=== PATIENT | male | born 1990 | race African-American/Black ===

== ENCOUNTER 2023-05-21 13:02 | Emergency (ER) | payer MEDICAID, OTHER ==
[~2023-05-21] VITALS: Ht 160 cm; Wt 84.0 kg
[2023-05-21 13:18] VITALS: BP 116/73; PULSE 80; RESP 19; TEMP 98.3; O2SAT 96
[2023-05-21] MEDS ORDERED: LIDOCAINE HCL/PF 1% 10 MG/ML 5ML VIAL INFIL ONE (16:15)
[2023-05-21] MEDS ORDERED: SULF1TAB48 MT (18:05)
[2023-05-21] MEDS ORDERED: CEPH500T MT (18:05)
[2023-05-21] MEDS ORDERED: LIDOCAINE HCL/PF 1% 10 MG/ML 5ML VIAL INFIL NR (18:15)
== END 2023-05-21 18:28 | disposition home or self-care (01) ==
LOC: ER 13:02
DX: L02.01 Cutaneous abscess of face (principal); J45.909 Unspecified asthma, uncomplicated
CPT/HCPCS: 10060; 99282; J3490

== ENCOUNTER 2025-03-27 21:00 | Emergency (ER) | payer MEDICAID, OTHER ==
[~2025-03-27] VITALS: Ht 188 cm; Wt 91.0 kg
[~2025-03-27 21:00] MED LIST: CEPH500T MT; SULF1TAB48 MT
[2025-03-27 21:10] VITALS: O2SAT 99
[2025-03-27] MEDS: HALOPERIDOL LACTATE 5MG/ML VIAL IM ONE (22:24)
[2025-03-27] MEDS: DIPHENHYDRAMINE 50MG/ML VIAL IM ONE (22:25)
[2025-03-28 02:18] LABS: BASOPHILS % 0.4 % (0.0-2.0); EOSINOPHILS % 1.3 % (0.0-5.0); HEMATOCRIT. 41.8 % (42.0-52.0); HEMOGLOBIN. 14.0 g/dL (14.0-18.0); LYMPHOCYTES % 25.4 % (20.0-50.0); MEAN PLATELET VOLUME 8.4 fl (7.4-10.4); MONOCYTES % 9.1 % (2.0-8.0); NEUTROPHILS % 63.8 % (40.0-76.0); PLATELET 164 x1000/uL (130-400); RED BLOOD CELL COUNT 5.16 mill/uL (4.7-6.1); RED CELL DISTRIBUTION WIDTH 16.4 % (11.6-14.6)
[2025-03-28 02:35] LABS: CREATININE 1.2 mg/dL (0.6-1.3); ETHANOL BLOOD < 10 mg/dL (<10); UREA NITROGEN BLOOD 13 mg/dL (9-23)
[2025-03-28 19:29] LABS: CLARITY URINE CLEAR (CLEAR); COLOR URINE YELLOW (YELLOW); GLUCOSE URINE NEGATIVE (NEGATIVE); KETONES URINE 1+ (NEGATIVE); LEUKOCYTE ESTERASE URINE TRACE (NEGATIVE); NITRITE URINE NEGATIVE (NEGATIVE); OCCULT BLOOD URINE NEGATIVE (NEGATIVE); PH URINE 6.0 (4.5-8.0); PROTEIN URINE NEGATIVE (NEGATIVE); SPECIFIC GRAVITY URINE 1.029 (1.005-1.030); UROBILINOGEN URINE 1.0 E.U./dL (0.2-1.0)
[2025-03-28 19:39] LABS: *AMPHETAMINES SCREEN URINE NEGATIVE (NEGATIVE); *BARBITURATES SCREEN URINE NEGATIVE (NEGATIVE); *BENZODIAZEPINES SCREEN URINE NEGATIVE (NEGATIVE); *COCAINE SCREEN URINE NEGATIVE (NEGATIVE); METHADONE URINE SCREEN NEGATIVE (NEGATIVE); OPIATES URINE SCREEN NEGATIVE (NEGATIVE); PHENCYCLIDINE URINE SCREEN NEGATIVE (NEGATIVE)
[2025-03-28 19:40] LABS: CANNABINOID URINE SCREEN PRESUMPTIVE POSITIVE (NEGATIVE); ECSTASY MDMA SCREEN URINE NEGATIVE (NEGATIVE)
[2025-03-28 19:41] LABS: BACTERIA URINE TRACE; RBC URINE 0-2 /hpf (0-2); SQUAMOUS EPITHELIAL CELL URINE 1+ /lpf (RARE/1+)
[2025-03-30] VITALS: TEMP 36.8
[2025-03-30 00:43] LABS: ASPARTATE AMINOTRANSFERASE 27 IU/L (<34); BILIRUBIN DIRECT 0.5 mg/dL (<=3.0); BILIRUBIN TOTAL 1.8 mg/dL (0.1-1.0); PROTEIN TOTAL 6.7 g/dL (6.0-8.3)
[2025-03-30] MEDS: OLANZAPINE 5MG TABLET PO SCH (10:27)
[2025-03-31 08:00] VITALS: BP 128/76; PULSE 81; RESP 18; O2SAT 100
== END 2025-03-31 10:30 | disposition left against medical advice (07) ==
LOC: ER 21:00
DX: F23 Brief psychotic disorder (principal); Z20.822 Contact with and (suspected) exposure to COVID-19; Z79.899 Other long term (current) drug therapy; Z98.890 Other specified postprocedural states; Z86.59 Personal history of other mental and behavioral disorders
CPT/HCPCS: 80076; 80305; 80048; 81003; 80307; 80329; 80320; 85025; 36415; 96372; 99285; 87426; J1200; J1630; J2060; Z7610 ×2; G0480